=== PATIENT | female | born 1995 | race Caucasian/White ===

== ENCOUNTER 2019-03-12 07:20 | Emergency (ER) | payer MEDICAID ==
[~2019-03-12] VITALS: Ht 175.3 cm; Wt 126.6 kg
[2019-03-12 07:31] VITALS: Ht 175.3 cm; Wt 126.6 kg
[2019-03-12 09:32] VITALS: BP 123/70
== END 2019-03-12 10:18 | disposition home or self-care (01) ==
LOC: ED 07:20
DX: R10.30 Lower abdominal pain, unspecified (principal)
CPT/HCPCS: Q0092

== ENCOUNTER 2019-05-01 10:12 | Emergency (ER) | payer MEDICAID ==
[~2019-05-01] VITALS: Ht 172.7 cm; Wt 122.9 kg
[2019-05-01 10:18] VITALS: Ht 172.7 cm; Wt 122.9 kg
[2019-05-01 10:44] VITALS: BP 146/99
== END 2019-05-01 10:44 | disposition home or self-care (01) ==
LOC: ED 10:12
DX: J40 Bronchitis, not specified as acute or chronic (principal); R53.1 Weakness; R19.7 Diarrhea, unspecified
CPT/HCPCS: J1100

== ENCOUNTER 2019-05-07 18:23 | Emergency (ER) | payer MEDICAID ==
[~2019-05-07] VITALS: Ht 172.7 cm; Wt 122.0 kg
[2019-05-07 18:54] VITALS: Ht 172.7 cm; Wt 122.0 kg
[2019-05-07 23:39] VITALS: BP 116/76
== END 2019-05-07 23:39 | disposition home or self-care (01) ==
LOC: ED 18:23
DX: J18.1 Lobar pneumonia, unspecified organism (principal); J98.01 Acute bronchospasm
CPT/HCPCS: J0171; J7030; J7613; Q0092

== ENCOUNTER 2019-05-08 00:03 | Emergency (ER) | payer MEDICAID ==
[~2019-05-08] VITALS: Ht 172.7 cm; Wt 123.4 kg
[2019-05-08 00:06] VITALS: Ht 172.7 cm; Wt 123.4 kg
[2019-05-08 01:12] LABS: RED CELL DISTRIBUTION WIDTH 12.6 % (11.5-14.5)
[2019-05-08 01:17] LABS: BASOPHIL % 4.1 % (0-2); PLATELET COUNT 470 x10^3mcL (130-400)
[2019-05-08 01:39] LABS: CARBON DIOXIDE 28.5 mmol/L (21-32); CHLORIDE SERUM 101 mmol/L (98-107); GLUCOSE SERUM 139 mg/dL (74-106); POTASSIUM SERUM 3.1 mmol/L (3.5-5.1); SODIUM SERUM 137 mmol/L (136-145)
[2019-05-08 01:40] LABS: CALCIUM 8.4 mg/dL (8.5-10.1); CREATININE SERUM 0.7 mg/dL (0.6-1.0); GFR1 > 60 mL/min
[2019-05-08 01:42] LABS: ALBUMIN 2.8 g/dL (3.4-5.0); ALKALINE PHOSPHATASE 82 U/L (46-116); ALT/SGPT 12 U/L (14-59); AST/SGOT 9 U/L (15-37); BILIRUBIN TOTAL 0.55 mg/dL (0.20-1.00); TOTAL PROTEIN, SERUM 7.4 g/dL (6.4-8.2)
[2019-05-08 03:05] VITALS: BP 116/75
== END 2019-05-08 03:08 | disposition home or self-care (01) ==
LOC: ED 00:03
PROVIDERS: Specialist
DX: J18.8 Other pneumonia, unspecified organism (principal); E87.6 Hypokalemia
CPT/HCPCS: 87804; J0456; J0696; J7060

== ENCOUNTER 2019-10-17 14:42 | Emergency (ER) | payer MEDICAID, SELFPAY ==
[~2019-10-17] VITALS: Ht 172.7 cm; Wt 124.7 kg
[2019-10-17 15:06] VITALS: Ht 172.7 cm; Wt 124.7 kg
[2019-10-17 15:47] LABS: microscopic required? NO
[2019-10-17 15:57] LABS: urine erythrocyte NEGATIVE (NEGATIVE)
[2019-10-17 16:05] LABS: BASOPHIL % 1.3 % (0-2); PLATELET COUNT 249 x10^3mcL (130-400); RED CELL DISTRIBUTION WIDTH 14.4 % (11.5-14.5)
[2019-10-17 16:27] LABS: CALCIUM 8.9 mg/dL (8.5-10.1); CARBON DIOXIDE 24.9 mmol/L (21-32); CHLORIDE SERUM 103 mmol/L (98-107); CREATININE SERUM 0.7 mg/dL (0.6-1.0); GFR1 > 60 mL/min; GLUCOSE SERUM 93 mg/dL (74-106); POTASSIUM SERUM 3.7 mmol/L (3.5-5.1); SODIUM SERUM 137 mmol/L (136-145)
[2019-10-17 16:31] LABS: ALKALINE PHOSPHATASE 43 U/L (46-116); ALT/SGPT 20 U/L (14-59); AST/SGOT 14 U/L (15-37); BILIRUBIN TOTAL 0.2 mg/dL (0.20-1.00); C REACTIVE PROTEIN 2.4 mg/dL (<=0.9); LACTIC DEHYDROGENASE (LDH) 155 U/L (100-190); TOTAL PROTEIN, SERUM 7.3 g/dL (6.4-8.2)
[2019-10-17 16:32] LABS: ALBUMIN 3.3 g/dL (3.4-5.0)
[2019-10-17 17:29] VITALS: BP 129/88
== END 2019-10-17 17:29 | disposition home or self-care (01) ==
LOC: ED 14:42
PROVIDERS: Emergency Medicine
DX: U07.1 COVID-19 (principal); O98.511 Other viral diseases complicating pregnancy, first trimester; Z3A.01 Less than 8 weeks gestation of pregnancy
CPT/HCPCS: 36600; 83880; 85378; 87804; U0003-CS